=== PATIENT | female | born 1930 | race Caucasian/White ===

== ENCOUNTER → 2019-02-11 | Outpatient (CLI) | payer MEDICARE ==
[~2019-02-11] MED LIST: ASPI81TA27 PO; ATEN-60 PO; CHOL20007 PO; DIPH25CA6 PO; GLIP-115 PO; LATA0.0015 EACHEYE; LOVA20TA4 PO; METF-370 PO; TIMO0.5S38 EACHEYE
== END | disposition home or self-care (01) ==
LOC: Rad HDHVI 14:53
PROVIDERS: ATTEND Internal Medicine Cardiovascular Disease
DX: R06.02 Shortness of breath (principal); I11.9 Hypertensive heart disease without heart failure; R42 Dizziness and giddiness
CPT/HCPCS: 93306

== ENCOUNTER → 2019-03-03 | Outpatient (CLI) | payer MEDICARE ==
[~2019-03-03] VITALS: Ht 170.2 cm; Wt 74.8 kg
[~2019-03-03] MED LIST changes: +ADENOSINE 63 MG in GIVE UN-DILUTED 0 ML IV ONE; +ADENOSINE 90 MG/30 ML INJ IV ONE
== END | disposition home or self-care (01) ==
LOC: Rad HDHVI 13:07
PROVIDERS: ATTEND Internal Medicine Cardiovascular Disease
DX: I11.0 Hypertensive heart disease with heart failure (principal); I50.23 Acute on chronic systolic (congestive) heart failure; G45.9 Transient cerebral ischemic attack, unspecified; E78.00 Pure hypercholesterolemia, unspecified; R06.02 Shortness of breath; R42 Dizziness and giddiness
CPT/HCPCS: 78452; 93005; 96374; 96375; A9500; J0153

== ENCOUNTER 2019-04-17 10:22 | Inpatient (IN) | payer MEDICARE ==
[2019-04-17] VITALS (12 sets, daily range): BP systolic 97–161; BP diastolic 44–99
[~2019-04-17] VITALS: Ht 170.2 cm; Wt 76.0 kg
[~2019-04-17 10:22] MED LIST changes: -ADENOSINE 63 MG in GIVE UN-DILUTED 0 ML IV ONE; -ADENOSINE 90 MG/30 ML INJ IV ONE; +ASPI-404 PO; -ASPI81TA27 PO; +BRIM0.159 LEFTEYE; +DORZ2SOL LEFTEYE; -GLIP-115 PO; +GLIP5TAB12 PO; +IOHEXOL 350 MG/ML 100ML IJ ONE; +LIDOCAINE 2%HCL (LOCAL ANESTH.) INJ 20ML MDV ONE; -TIMO0.5S38 EACHEYE; +TIMO0.5S66 EACHEYE
[2019-04-17] MEDS ORDERED: ANGIOMAX 250 MG VIAL IV ONE (13:28)
[2019-04-17] MEDS ORDERED: SODIUM CHL 0.9% 0 ML ONE (13:29)
[2019-04-17] MEDS ORDERED: MIDAZOLAM HCL 1MG/1ML-2 ML VIAL ONE (13:29)
[2019-04-17] MEDS ORDERED: fentaNYL CITRATE 100 MCG/2 ML VL ONE (13:29)
[2019-04-17] MEDS ORDERED: IODIXANOL 320MG/ML 100ML BTL IV ONE (13:33)
[2019-04-17] MEDS ORDERED: HEPARIN IN NS 1000Units/500mL 0 ML ONE (14:06)
[2019-04-17] MEDS ORDERED: HEPARIN SODIUM (PORCINE) 5000 UNITS/ML 1ML VIAL ONE ×2 (14:21→22:11)
[2019-04-17] MEDS ORDERED: HEPARIN DRIP/D5W 100UNITS/ML 250 ML IV ONE (14:21)
[2019-04-17] MEDS ORDERED: DEXTROSE (50%) 50ML SYRG IV PRN (15:15)
[2019-04-17] MEDS ORDERED: NITROGLYCERIN 0.4 MG SL TAB SL PRN (15:15)
[2019-04-17] MEDS ORDERED: MORPHINE SULF INJ 2 MG/ML SYRINGE 1ML IV PRN (15:15)
[2019-04-17] MEDS ORDERED: ACETAMINOPHEN 500 MG TAB PO PRN (15:15)
[2019-04-17] MEDS ORDERED: HYDROcodone-ACET 5/325MG TAB PO PRN (15:15)
[2019-04-17] MEDS ORDERED: ONDANSETRON HCL 4 MG/2 ML VIAL IV PRN (15:15)
[2019-04-17] MEDS ORDERED: diphenhdrAMINE HCL 25 MG CAP PO PRN (15:15)
[2019-04-17 15:34] LABS: Albumin 3.7 g/dL (3.4-5.0); Calcium 9.4 mg/dL (8.5-10.1)
[2019-04-17] MEDS: HEPARIN DRIP/D5W 100UNITS/ML 250 ML IV SCH (15:36)
[2019-04-17 15:38] LABS: BUN/Creatinine Ratio 18.5; Bilirubin, Total 2.9 mg/dL (0.2-1.0)
[2019-04-17 15:40] LABS: Basophils # (auto) 0 uL; Basophils % (auto) 0.3 % (0.0-2.0); Eosinophils # (auto) 0.1 uL; Eosinophils % (auto) 2.1 % (0.0-7.0); Hematocrit 45.2 % (36.0-46.0); Hemoglobin 15.6 g/dL (12.2-16.2); Lymphocytes % (auto) 30.3 % (10.0-50.0); Mean Corpuscular Hemoglobin 32.8 pg (28.0-32.0); Mean Corpuscular Hgb Conc. 34.5 g/dL (32.0-36.0); Monocytes # (auto) 0.5 uL; Monocytes % (auto) 8.1 % (0.0-12.0); Neutrophils # (auto) 3.9 uL; Neutrophils % (auto) 59.2 % (37.0-80.0); Nucleated Red Blood Cells % 0.2 %; Platelet Count (auto) 211 10^3/uL (140-450); Red Blood Cells 4.76 10^6/uL (4.0-5.20); Red Cell Distribution Width 12.9 % (11.8-14.3); White Blood Cell 6.7 10^3/uL (4.4-10.8)
[2019-04-17 15:52] LABS: INR 1.13 (0.9-1.15)
--- NOTE | 2019-04-17 16:14 | NUR ---
Family contact information Mora (daughter) [phone] Parish Rodriguez (son-in-law/Mora's ) [phone]
[2019-04-17 16:46] LABS: Partial Thromboplastin Time 76.4 sec (23.64-32.05)
--- NOTE | 2019-04-17 16:57 | NUR ---
Primary MD At patient's request, pt's primary PCP Dr. Cayden Chopra notified that pt is in the hospital and pt would like to talk with her regarding decision to have surgery. Personally spoke with Dr. Chopra who stated she would review her chart and call back. Informed her of pt's location in ICU.
[2019-04-17] MEDS: ACCU-CHEK COMFORT CURVE STRIP VI SCH ×2 (17:00→22:18)
--- NOTE | 2019-04-17 17:30 | NUR ---
Pt being admitted to ICU EMILY MCCOY admitted to ICU via gurney on director education, and portable 02. Patient transfered to bed, connected to ICU monitoring and oxygen, and weighed by bedscale. Patient oriented to Kirk blunt RN, unit, room, bed, and unit policies regarding patient care and visiting hours. All questions and concerns addressed, patient verbalized understanding.
[2019-04-17] MEDS: glipiZIDE 5 MG TAB PO SCH (17:51)
[2019-04-17] MEDS: InsuLIN REG 1unit/0.01ml Soln (100units/ml) SC SCH ×2 (17:51→22:18)
--- NOTE | 2019-04-17 19:18 | NUR ---
REPORT GIVEN TO ORA MEHTA TO ASSUME CARE
--- NOTE | 2019-04-17 19:30 | NUR ---
OPENING SHIFT NOTE PT SITTING UP IN BED, ALERT AND ORIENTED TIMES FOUR. S/P ANGIOPLASTY. LUNG SOUNDS CLEAR. SINUS RHYTHM ON BEDSIDE MONITOR, HR 60'S. IV 2O GAUGE TO LEFT FOREARM RUNNING HEPARIN GTT AT 600 UNITS/HR. SITE BENIGN, PATENT AND INTACT. NO REDNESS OR COMPLAINTS OF TENDERNESS. RIGHT GROIN INSERTION SITE WITH ANGIOCELE. NO HEMATOMA OR HARDNESS NOTED. DRESSING CDI. ALL PULSES PALPABLE. FULL ASSESSMENT DONE SEE INTERVENTIONS. ALL ALARMS ON AND AUDIBLE. PT IN FULL VIEW OF RN. PT DENIES PAIN AT THIS TIME. CALL LIGHT NOMI DAIGLE AND PT VERBALIZED UNDERSTANDING TO CALL FOR ASSISTANCE.
--- NOTE | 2019-04-17 20:00 | NUR ---
DR. Cayden NARAYAN PHONES PT'S PRIMARY MD, Cayden NARAYAN, CALLS FOR UPDATE ON PT AND WISHES TO SPEAK WITH PT. PHONE CALL TRANSFERRED TO PORTABLE PHONE AND PT TALKS WITH .
[2019-04-17] MEDS: OPTH LEFTEYE SCH (22:00)
[2019-04-17] MEDS: SODIUM CHLOR 0.9% PF (SALINE LOCK) 10ML VIAL/SYR IV SCH (22:00)
[2019-04-17] MEDS: BRIMONIDINE 0.15% LEFTEYE SCH (22:00)
[2019-04-17] MEDS: TIMOLOL MAL 0.5% OPTH(EYE) SOL 5ML EACHEYE SCH (22:00)
[2019-04-17] MEDS: LATANOPROST 0.005 % OPTH(EYE) SOL 2.5ML OP SCH (22:00)
[2019-04-17] MEDS: DORZOLAMIDE HCL 2% OPTH(EYE) SOL 10ML LEFTEYE SCH (22:00)
[2019-04-17] MEDS: PRAVASTATIN SODIUM 20 MG TAB PO SCH (22:00)
--- NOTE | 2019-04-17 22:00 | NUR ---
PTT LAB RESULT CAME BACK 34.1. PER HEPARIN GTT PROTOCOL BY ; BOLUS PT 5,000 UNITS AND INCREASE HEPARIN GTT BY 300 UNITS. HEPARIN GTT NOW RUNNING AT 900 UNITS/HR. NEXT PTT LAB DRAW AT 0300. WILL CONTINUE TO MONITOR PT CLOSELY.
[2019-04-17] MEDS ORDERED: HEPARIN SODIUM (PORCINE) 5000 UNITS/ML 1ML VIAL IV ONE (22:15)
[2019-04-18] VITALS (44 sets, daily range): BP systolic 82–158; BP diastolic 36–84
[2019-04-18 03:56] LABS: Basophils # (auto) 0.1 uL; Basophils % (auto) 0.7 % (0.0-2.0); Eosinophils # (auto) 0.1 uL; Eosinophils % (auto) 1.6 % (0.0-7.0); Hematocrit 44.3 % (36.0-46.0); Hemoglobin 15.1 g/dL (12.2-16.2); Lymphocytes # (auto) 1.8 uL; Lymphocytes % (auto) 24.1 % (10.0-50.0); Mean Corpuscular Hemoglobin 32.4 pg (28.0-32.0); Mean Corpuscular Volume 95.3 fL (80.0-100.0); Monocytes # (auto) 0.7 uL; Monocytes % (auto) 9.2 % (0.0-12.0); Neutrophils # (auto) 4.9 uL; Neutrophils % (auto) 64.4 % (37.0-80.0); Nucleated Red Blood Cells % 0.1 %; Platelet Count (auto) 181 10^3/uL (140-450); Red Blood Cells 4.65 10^6/uL (4.0-5.20); Red Cell Distribution Width 13.3 % (11.8-14.3); White Blood Cell 7.6 10^3/uL (4.4-10.8)
[2019-04-18 04:16] LABS: Albumin 3.4 g/dL (3.4-5.0); BUN/Creatinine Ratio 21.9; Calcium 9.2 mg/dL (8.5-10.1); Magnesium 2.1 mg/dL (1.6-2.6); Potassium 3.7 mmol/L (3.5-5.1)
[2019-04-18 04:19] LABS: Bilirubin, Total 2.4 mg/dL (0.2-1.0); Phosphorus 3.8 mg/dL (2.5-4.90); Total Protein 6.3 g/dL (6.4-8.2)
--- NOTE | 2019-04-18 04:40 | NUR ---
PTT CRITICAL VALUE AT 97.0. PER PROTOCOL, HEPARIN GTT OFF AT THIS TIME FOR 1 HOUR. THEN WILL DECREASE BY 300UNITS. WILL CONTINUE TO MONITOR CLOSELY FOR ANY BLEEDING.
[2019-04-18] MEDS: SODIUM CHLOR 0.9% PF (SALINE LOCK) 10ML VIAL/SYR IV SCH ×3 (06:00→21:55)
[2019-04-18] MEDS: InsuLIN REG 1unit/0.01ml Soln (100units/ml) SC SCH ×4 (06:37→22:01)
[2019-04-18] MEDS: ACCU-CHEK COMFORT CURVE STRIP VI SCH ×4 (06:37→21:55)
--- NOTE | 2019-04-18 07:23 | NUR ---
END OF SHIFT NOTE REPORT GIVEN TO DAY SHIFT RN TO ASSUME CARE
[2019-04-18] MEDS: glipiZIDE 5 MG TAB PO SCH ×2 (08:00→18:00)
--- NOTE | 2019-04-18 08:00 | NUR ---
OPENING NOTE Received patient in bed resting with eyes closed, easily arousable to verbal stimuli, speech appropriate/clear and able to move upper/lower extremities. Sinus bradycardia in the high 50's on bedside monitor, pulses palpable on upper/lower extremities and no edema observed. Nasal cannula at 2 liters sating in the high 90's, lungs clear bilaterally. Abdomen soft, non tender and non distended with present bowel sounds. Patient uses bedpan to void. IV to the left forearm: good blood return and flushes easily infusing Heparin gtt at 6ml= 600 Units. Skin intact other than puncture site on right groin secondary to cardiac catheterization 04/17/2019: dressing clean, dry and intact. SCD's on. Patient denies any pain. Call light with in reach and bed at lowest position. Will continue to monitor patient closely for any bleeding.
--- NOTE | 2019-04-18 09:00 | NUR ---
ELIMINATION Patient requested bedpan, voided X 1, self angélica-care provided. Patient tolerated well.
[2019-04-18] MEDS: DORZOLAMIDE HCL 2% OPTH(EYE) SOL 10ML LEFTEYE SCH ×2 (09:30→21:56)
[2019-04-18] MEDS: TIMOLOL MAL 0.5% OPTH(EYE) SOL 5ML EACHEYE SCH ×2 (09:30→21:56)
[2019-04-18] MEDS: OPTH LEFTEYE SCH ×2 (09:30→21:56)
[2019-04-18] MEDS: BRIMONIDINE 0.15% LEFTEYE SCH ×2 (09:30→21:56)
[2019-04-18] MEDS: ATENOLOL 25 MG TAB PO SCH (09:31)
--- NOTE | 2019-04-18 09:45 | NUR ---
FAMILY Patients daughter and son in law at bedside.
--- NOTE | 2019-04-18 10:15 | NUR ---
MD Dr. Chopra at bedside updated on patient condition with no new orders. MD spoke to patient and patient daughters regarding plan of care. Questions and concerns answered by .
[2019-04-18] MEDS: CHOLECALCIFEROL (VITD3) 1,000 UNIT TAB PO SCH (10:19)
[2019-04-18 12:03] LABS: INR 1.06 (0.9-1.15); Partial Thromboplastin Time 34.2 sec (23.64-32.05)
--- NOTE | 2019-04-18 12:15 | NUR ---
HEPARIN GTT Received PTT results of 34.2 and increased Heparin gtt to 900 Units = 9ml/hr per Heparin gtt protocol.
--- NOTE | 2019-04-18 12:20 | NUR ---
FAMILY Patients grand daughters at bedside.
[2019-04-18] MEDS ORDERED: HEPARIN SODIUM (PORCINE) 5000 UNITS/ML 1ML VIAL IV ONE (12:30)
--- NOTE | 2019-04-18 13:50 | NUR ---
MD Dr. Cee at bedside updated on patient condition with no new orders. Spoke to patient regarding plan of care. Questions and concerns answered by .
--- NOTE | 2019-04-18 14:30 | NUR ---
ELIMINATION Patient requested bedpan, voided X 1, self angélica-care provided. Patient tolerated well.
--- NOTE | 2019-04-18 16:30 | NUR ---
Paged Dr. Chopra per charge nurse Dm to ask for a downgrade for this patient secondary to short staffing for nights.
--- NOTE | 2019-04-18 17:00 | NUR ---
MD Dr. Chopra called back with new orders, this RN to input into system.
--- NOTE | 2019-04-18 20:00 | NUR ---
PT AWAKE AND ALERT VERY PLEASANT, DENIES ANY CHEST PAIN SOB OR HEADACHE, PT STATES "i NEVER HAD CHEST PAIN", ON 2L NC SAO2 96%, SR WITHOUT ECTOPY, LFA #20G IV INFUSING HEPARIN GTT AT 900U/HR, PTT PENDING AT THIS TIME, SEE INTERVENTIONS FOR FURTHER ASSESSMENT AND V/S, REPORT GIVEN TO LAURY ON MED-SURG TELE, TRANSPORTED PT TO 219B VIA W/C, TOLERATED MOVEMENT WELL
--- NOTE | 2019-04-18 20:10 | NUR ---
RECEIVED PATIENT VIA WHEELCHAIR ALERT AND ORIENTED X 4, DENIES ANY CHEST PAIN, ON HEPARIN DRIP AT 900UNITS/HR, IV ON LFA INTACT, ORIENTED TO UNIT ROUTINES, EMPHASIZED SAFETY, CALL MOBLEY AT BEDSIDE WITHIN REACH.
--- NOTE | 2019-04-18 20:30 | NUR ---
LATEST PTT IS STILL PENDING. WAITING FOR RESULT.
--- NOTE | 2019-04-18 20:40 | NUR ---
LATEST APTT IS >139 SEC, HELD HEPARIN DRIP AT 2040 FOR 1HOUR PER PROTOCOL, NO SIGNS OF BLEEDING.
--- NOTE | 2019-04-18 21:40 | NUR ---
RESTARTED HEPARIN DRIP AT 2140 INFUSING AT 600UNITS/HR PER PROTOCOL.
[2019-04-18] MEDS: PRAVASTATIN SODIUM 20 MG TAB PO SCH (21:55)
[2019-04-18] MEDS: LATANOPROST 0.005 % OPTH(EYE) SOL 2.5ML OP SCH (21:56)
[2019-04-19] MEDS: HEPARIN DRIP/D5W 100UNITS/ML 250 ML IV SCH (02:19)
[2019-04-19 05:02] LABS: INR 1.02 (0.9-1.15); Partial Thromboplastin Time 36.7 sec (23.64-32.05)
--- NOTE | 2019-04-19 05:15 | NUR ---
HEPARIN DRIP LATEST APTT-36.7, INCREASED DRIP RATE TO 800UNITS/HR (8ML/HR) PER PROTOCOL. NEXT APTT BLOOD DRAW SCHEDULED AT 1200.
[2019-04-19 06:09] VITALS: BP 97/72
[2019-04-19] MEDS: SODIUM CHLOR 0.9% PF (SALINE LOCK) 10ML VIAL/SYR IV SCH ×2 (06:28→14:20)
[2019-04-19] MEDS: ACCU-CHEK COMFORT CURVE STRIP VI SCH ×2 (06:28→11:30)
[2019-04-19] MEDS: InsuLIN REG 1unit/0.01ml Soln (100units/ml) SC SCH ×2 (06:31→11:30)
--- NOTE | 2019-04-19 07:50 | NUR ---
Opening Shift Note Assumed care of patient, awake , alert and oriented x4. No S/S of distress/SOB or pain. Bed at lowest locked, position bed rails up x2 and call light within reach. Instructed on POC and to call for assist PRN, will continue to monitor for changes Q1hr and PRN.
[2019-04-19] MEDS: glipiZIDE 5 MG TAB PO SCH (08:00)
[2019-04-19 08:30] VITALS: BP 115/57
[2019-04-19 08:39] VITALS: BP 115/57
[2019-04-19] MEDS: BRIMONIDINE 0.15% LEFTEYE SCH (10:00)
[2019-04-19] MEDS: CHOLECALCIFEROL (VITD3) 1,000 UNIT TAB PO SCH (10:00)
[2019-04-19] MEDS: DORZOLAMIDE HCL 2% OPTH(EYE) SOL 10ML LEFTEYE SCH (10:00)
[2019-04-19] MEDS: ATENOLOL 25 MG TAB PO SCH (10:00)
[2019-04-19] MEDS: OPTH LEFTEYE SCH (10:00)
[2019-04-19] MEDS: TIMOLOL MAL 0.5% OPTH(EYE) SOL 5ML EACHEYE SCH (10:00)
[2019-04-19 11:25] LABS: INR 1.01 (0.9-1.15); Partial Thromboplastin Time 42.3 sec (23.64-32.05)
[2019-04-19 12:21] VITALS: BP 111/65
[2019-04-19 12:58] VITALS: BP 112/62
--- NOTE | 2019-04-19 13:43 | NUR ---
MRSA SWAB Collected MRSA swab, of r/l nare.Sent to lab via [facility] system. Patient tolerated well.
--- NOTE | 2019-04-19 13:44 | NUR ---
Discharge instructions given as ordered. Encourage to follow up with PMD as instructed. All questions and concerns addressed. Patient verbalized understanding. Medication reconciliation form completed and copy given to patient. IV removed with catheter intact, pressure dressing applied. Telemetry unit returned to ICU. Patient awaiting for transportation. All personal belongings are with patient. No distress noted. No c/o pain stated.
== END 2019-04-19 13:20 | disposition home or self-care (01) | DRG 287 ==
LOC: CATH 10:22 → ICU WEST 10:23 → TELE-CENTR 04-18 19:58
PROVIDERS: ADMIT Internal Medicine Cardiovascular Disease; ATTEND Internal Medicine Cardiovascular Disease
PROC: 4A023N8 Measurement of Cardiac Sampling and Pressure, Bilateral, Percutaneous Approach (ICD-10-PCS; principal; 2019-04-17)
PROC: B2161ZZ Fluoroscopy of Right and Left Heart using Low Osmolar Contrast (ICD-10-PCS; 2019-04-17)
PROC: B3111ZZ Fluoroscopy of Right Brachiocephalic-Subclavian Artery using Low Osmolar Contrast (ICD-10-PCS; 2019-04-17)
PROC: B31N1ZZ Fluoroscopy of Other Upper Arteries using Low Osmolar Contrast (ICD-10-PCS; 2019-04-17)
PROC: B3181ZZ Fluoroscopy of Bilateral Internal Carotid Arteries using Low Osmolar Contrast (ICD-10-PCS; 2019-04-17)
PROC: B31C1ZZ Fluoroscopy of Bilateral External Carotid Arteries using Low Osmolar Contrast (ICD-10-PCS; 2019-04-17)
PROC: B3151ZZ Fluoroscopy of Bilateral Common Carotid Arteries using Low Osmolar Contrast (ICD-10-PCS; 2019-04-17)
PROC: B2151ZZ Fluoroscopy of Left Heart using Low Osmolar Contrast (ICD-10-PCS; 2019-04-17)
PROC: B41F1ZZ Fluoroscopy of Right Lower Extremity Arteries using Low Osmolar Contrast (ICD-10-PCS; 2019-04-17)
DX: I25.10 Atherosclerotic heart disease of native coronary artery without angina pectoris (principal); I25.5 Ischemic cardiomyopathy; E78.5 Hyperlipidemia, unspecified; I10 Essential (primary) hypertension; E11.9 Type 2 diabetes mellitus without complications; H40.9 Unspecified glaucoma; M19.90 Unspecified osteoarthritis, unspecified site; Z79.899 Other long term (current) drug therapy
CPT/HCPCS: 36415; 36600; 71046; 80048; 80053; 82805; 82962; 83735; 84100; 85025; 85610; 85730; 87081; 93005; G0378; G0463; J1815; J2250; Q9967

== ENCOUNTER 2021-03-11 20:04 | Inpatient (IN) | payer MEDICARE ==
[~2021-03-11] VITALS: Ht 170.2 cm; Wt 79.7 kg
[~2021-03-11 20:04] MED LIST changes: -ASPI-404 PO; +ASPI-543 PO; +DIPH25CA29 PO; -DIPH25CA6 PO; -DORZ2SOL LEFTEYE; +DORZ2SOL18 EACHEYE; -IOHEXOL 350 MG/ML 100ML IJ ONE; -LATA0.0015 EACHEYE; +LATA0.0019 EACHEYE; -LIDOCAINE 2%HCL (LOCAL ANESTH.) INJ 20ML MDV ONE
[2021-03-11 21:27] LABS: Basophils # (auto) 0.1 10 ^3/uL (0-0.2); Basophils % (auto) 0.9 % (0.0-2.0); Eosinophils # (auto) 0.2 10 ^3/uL (0-0.8); Eosinophils % (auto) 2.8 % (0.0-7.0); Hematocrit 39.1 % (36.0-46.0); Hemoglobin 13.5 g/dL (12.2-16.2); Lymphocytes # (auto) 0.9 10 ^3/uL (0.4-5.4); Lymphocytes % (auto) 14.2 % (10.0-50.0); Mean Corpuscular Hgb Conc. 34.6 g/dL (32.0-36.0); Mean Corpuscular Volume 92.5 fL (80.0-100.0); Monocytes # (auto) 0.5 10 ^3/uL (0-1.3); Monocytes % (auto) 7.2 % (0.0-12.0); Neutrophils % (auto) 74.9 % (37.0-80.0); Red Blood Cells 4.23 10^6/uL (4.0-5.20); Red Cell Distribution Width 14.7 % (11.8-14.3); White Blood Cell 6.6 10^3/uL (4.4-10.8)
[2021-03-11 21:47] LABS: INR 1.1 (0.9-1.15); Partial Thromboplastin Time 25.7 sec (23.0-31.2)
[2021-03-11 21:55] LABS: Albumin 3.4 g/dL (3.4-5.0); Calcium 8.9 mg/dL (8.5-10.1)
[2021-03-11 21:57] LABS: BUN/Creatinine Ratio 25.2
[2021-03-11 22:02] LABS: Bilirubin, Total 2.1 mg/dL (0.2-1.0); Total Protein 7.2 g/dL (6.4-8.2)
[2021-03-12] MEDS ORDERED: FUROSEMIDE 40 MG/4 ML VIAL IV ONE (01:15)
[2021-03-12] MEDS ORDERED: MORPHINE SULFATE INJECTION 2 MG/ML SYRG IV PRN (02:45)
[2021-03-12] MEDS ORDERED: ONDANSETRON HCL 4 MG/2 ML VIAL IV PRN (02:45)
[2021-03-12] MEDS ORDERED: DOCUSATE SOD 100 MG CAP PO PRN (02:45)
[2021-03-12] MEDS ORDERED: HYDROcodone-ACET 5/325MG TAB PO PRN (02:45)
[2021-03-12] MEDS ORDERED: NITROGLYCERIN 0.4 MG SL TAB SL PRN (02:45)
[2021-03-12] MEDS ORDERED: DEXTROSE (50%) 50ML SYRG IV PRN (02:45)
[2021-03-12] MEDS ORDERED: ACETAMINOPHEN 325 MG TAB PO PRN (02:45)
[2021-03-12] MEDS: POTASSIUM CHL 20MEQ/100ML 100 ML IV SCH ×2 (04:05→08:13)
[2021-03-12 05:55] VITALS: BP 114/66
[2021-03-12] MEDS: ACCU-CHEK COMFORT CURVE STRIP VI SCH ×4 (06:28→20:47)
[2021-03-12] MEDS: SODIUM CHLOR 0.9% PF (SALINE LOCK) 10ML VIAL/SYR IV SCH ×3 (06:28→22:25)
[2021-03-12] MEDS: InsuLIN REG 1unit/0.01ml Soln (100units/ml) SC SCH ×4 (06:29→22:21)
[2021-03-12 07:33] LABS: Basophils # (auto) 0 10 ^3/uL (0-0.2); Basophils % (auto) 0.8 % (0.0-2.0); Eosinophils # (auto) 0.2 10 ^3/uL (0-0.8); Eosinophils % (auto) 3.5 % (0.0-7.0); Hematocrit 39.4 % (36.0-46.0); Hemoglobin 13.5 g/dL (12.2-16.2); Lymphocytes % (auto) 16.7 % (10.0-50.0); Mean Corpuscular Hemoglobin 31.9 pg (28.0-32.0); Mean Corpuscular Hgb Conc. 34.2 g/dL (32.0-36.0); Mean Corpuscular Volume 93.1 fL (80.0-100.0); Monocytes # (auto) 0.5 10 ^3/uL (0-1.3); Monocytes % (auto) 9.1 % (0.0-12.0); Neutrophils # (auto) 4.2 10 ^3/uL (1.6-8.6); Neutrophils % (auto) 69.9 % (37.0-80.0); Nucleated Red Blood Cells % 0.1 %; Red Blood Cells 4.23 10^6/uL (4.0-5.20); Red Cell Distribution Width 14.5 % (11.8-14.3); White Blood Cell 5.9 10^3/uL (4.4-10.8)
[2021-03-12 07:49] LABS: Albumin 3.6 g/dL (3.4-5.0); Potassium 3.9 mmol/L (3.5-5.1)
[2021-03-12 07:53] LABS: BUN/Creatinine Ratio 24.4; Bilirubin, Total 2.4 mg/dL (0.2-1.0)
[2021-03-12 08:00] VITALS: BP 117/73
[2021-03-12 08:31] VITALS: BP 117/73
[2021-03-12] MEDS: FUROSEMIDE 40 MG/4 ML VIAL IV SCH (10:54)
[2021-03-12] MEDS: ASPirin 81 mg TAB PO SCH (10:54)
[2021-03-12] MEDS: ZINC SULFATE 220mg CAP or TAB PO SCH (10:54)
[2021-03-12] MEDS: FAMOTIDINE 20 MG TAB PO SCH (10:54)
[2021-03-12] MEDS: HEPARIN SODIUM (PORCINE) 5000 UNITS/ML 1ML VIAL SC SCH ×2 (10:55→20:45)
[2021-03-12] MEDS: ASCORBIC ACID 500 MG TAB PO SCH ×2 (10:55→20:43)
[2021-03-12 12:12] VITALS: BP 127/71
[2021-03-12 17:00] VITALS: BP 124/67
[2021-03-12] MEDS: ALPRAZolam 0.25 MG TAB PO PRN (18:41)
[2021-03-12] MEDS: ATORVASTATIN 20 MG TAB PO SCH (20:42)
[2021-03-12] MEDS: ATENOLOL 25 MG TAB PO SCH (20:43)
[2021-03-12 22:00] VITALS: BP 100/62
[2021-03-13 05:00] VITALS: BP 94/64
[2021-03-13 06:10] LABS: Basophils # (auto) 0.1 10 ^3/uL (0-0.2); Basophils % (auto) 1.1 % (0.0-2.0); Eosinophils # (auto) 0.3 10 ^3/uL (0-0.8); Hematocrit 39.8 % (36.0-46.0); Hemoglobin 13.9 g/dL (12.2-16.2); Lymphocytes # (auto) 1.2 10 ^3/uL (0.4-5.4); Lymphocytes % (auto) 23.6 % (10.0-50.0); Mean Corpuscular Hemoglobin 32.7 pg (28.0-32.0); Mean Corpuscular Volume 93.3 fL (80.0-100.0); Monocytes # (auto) 0.6 10 ^3/uL (0-1.3); Neutrophils % (auto) 59.3 % (37.0-80.0); Nucleated Red Blood Cells % 0.2 %; Red Blood Cells 4.27 10^6/uL (4.0-5.20); Red Cell Distribution Width 14.6 % (11.8-14.3); White Blood Cell 5.1 10^3/uL (4.4-10.8)
[2021-03-13] MEDS: SODIUM CHLOR 0.9% PF (SALINE LOCK) 10ML VIAL/SYR IV SCH ×3 (06:20→22:07)
[2021-03-13] MEDS: ACCU-CHEK COMFORT CURVE STRIP VI SCH ×4 (06:21→22:13)
[2021-03-13] MEDS: InsuLIN REG 1unit/0.01ml Soln (100units/ml) SC SCH ×4 (06:21→22:35)
[2021-03-13 06:36] LABS: Calcium 9.1 mg/dL (8.5-10.1); Potassium 3.6 mmol/L (3.5-5.1)
[2021-03-13 06:41] LABS: Albumin 3.5 g/dL (3.4-5.0); BUN/Creatinine Ratio 24.3; Bilirubin, Total 1.6 mg/dL (0.2-1.0); Total Protein 6.8 g/dL (6.4-8.2)
[2021-03-13 08:00] VITALS: BP 107/63
[2021-03-13] MEDS: LISINOPRIL 20 MG TAB PO SCH (10:00)
[2021-03-13] MEDS: FUROSEMIDE 40 MG/4 ML VIAL IV SCH (10:00)
[2021-03-13] MEDS: ATENOLOL 25 MG TAB PO SCH ×2 (10:00→22:00)
[2021-03-13] MEDS: FAMOTIDINE 20 MG TAB PO SCH (10:47)
[2021-03-13] MEDS: ZINC SULFATE 220mg CAP or TAB PO SCH (10:47)
[2021-03-13] MEDS: HEPARIN SODIUM (PORCINE) 5000 UNITS/ML 1ML VIAL SC SCH ×2 (10:48→22:15)
[2021-03-13] MEDS: ASCORBIC ACID 500 MG TAB PO SCH ×2 (10:48→22:12)
[2021-03-13] MEDS: ASPirin 81 mg TAB PO SCH (11:24)
[2021-03-13 12:00] VITALS: BP 103/62
[2021-03-13 16:00] VITALS: BP 101/55
[2021-03-13] MEDS: ALPRAZolam 0.25 MG TAB PO PRN (19:44)
[2021-03-13 22:00] VITALS: BP 106/67
[2021-03-13] MEDS: ATORVASTATIN 20 MG TAB PO SCH (22:12)
[2021-03-14 05:00] VITALS: BP 108/68
[2021-03-14] MEDS: ACCU-CHEK COMFORT CURVE STRIP VI SCH ×4 (05:52→21:29)
[2021-03-14] MEDS: SODIUM CHLOR 0.9% PF (SALINE LOCK) 10ML VIAL/SYR IV SCH ×3 (05:53→21:28)
[2021-03-14] MEDS: InsuLIN REG 1unit/0.01ml Soln (100units/ml) SC SCH ×4 (05:53→21:34)
[2021-03-14 08:54] VITALS: BP 126/63
[2021-03-14] MEDS: FUROSEMIDE 40 MG/4 ML VIAL IV SCH (09:50)
[2021-03-14] MEDS: ASPirin 81 mg TAB PO SCH (09:50)
[2021-03-14] MEDS: ZINC SULFATE 220mg CAP or TAB PO SCH (09:51)
[2021-03-14] MEDS: LISINOPRIL 20 MG TAB PO SCH (09:51)
[2021-03-14] MEDS: FAMOTIDINE 20 MG TAB PO SCH (09:51)
[2021-03-14] MEDS: ASCORBIC ACID 500 MG TAB PO SCH ×2 (09:51→21:28)
[2021-03-14] MEDS: ATENOLOL 25 MG TAB PO SCH ×2 (09:57→21:41)
[2021-03-14] MEDS: HEPARIN SODIUM (PORCINE) 5000 UNITS/ML 1ML VIAL SC SCH ×2 (11:19→21:33)
[2021-03-14] MEDS: ALPRAZolam 0.25 MG TAB PO PRN ×2 (12:15→21:29)
[2021-03-14 13:00] VITALS: BP 86/49
[2021-03-14 17:00] VITALS: BP 81/47
[2021-03-14] MEDS: ATORVASTATIN 20 MG TAB PO SCH (21:28)
[2021-03-14 22:00] VITALS: BP 94/53
[2021-03-15] MEDS: SODIUM CHLOR 0.9% PF (SALINE LOCK) 10ML VIAL/SYR IV SCH ×3 (05:31→21:21)
[2021-03-15] MEDS: ACCU-CHEK COMFORT CURVE STRIP VI SCH ×4 (06:41→21:35)
[2021-03-15] MEDS: InsuLIN REG 1unit/0.01ml Soln (100units/ml) SC SCH ×4 (06:59→21:44)
[2021-03-15 09:00] VITALS: BP 94/52
[2021-03-15] MEDS: ASPirin 81 mg TAB PO SCH (09:26)
[2021-03-15] MEDS: ASCORBIC ACID 500 MG TAB PO SCH ×2 (09:26→21:21)
[2021-03-15] MEDS: ZINC SULFATE 220mg CAP or TAB PO SCH (09:26)
[2021-03-15] MEDS: FAMOTIDINE 20 MG TAB PO SCH (09:27)
[2021-03-15] MEDS: HEPARIN SODIUM (PORCINE) 5000 UNITS/ML 1ML VIAL SC SCH ×2 (09:30→21:23)
[2021-03-15] MEDS: LISINOPRIL 20 MG TAB PO SCH (10:00)
[2021-03-15] MEDS: FUROSEMIDE 40 MG/4 ML VIAL IV SCH (10:00)
[2021-03-15] MEDS: ATENOLOL 25 MG TAB PO SCH ×2 (10:00→21:35)
[2021-03-15 13:00] VITALS: BP 95/52
[2021-03-15] MEDS: ALPRAZolam 0.25 MG TAB PO PRN ×2 (13:20→21:22)
[2021-03-15 17:00] VITALS: BP 93/53
[2021-03-15] MEDS: ATORVASTATIN 20 MG TAB PO SCH (21:21)
[2021-03-15 22:00] VITALS: BP 86/58
[2021-03-16 05:00] VITALS: BP 114/65
[2021-03-16] MEDS: SODIUM CHLOR 0.9% PF (SALINE LOCK) 10ML VIAL/SYR IV SCH ×3 (05:54→20:58)
[2021-03-16] MEDS: ACCU-CHEK COMFORT CURVE STRIP VI SCH ×4 (06:25→20:59)
[2021-03-16] MEDS: InsuLIN REG 1unit/0.01ml Soln (100units/ml) SC SCH ×4 (06:26→21:21)
[2021-03-16 08:07] LABS: BUN/Creatinine Ratio 36.6; Calcium 9.3 mg/dL (8.5-10.1); Potassium 4.5 mmol/L (3.5-5.1)
[2021-03-16 09:00] VITALS: BP 91/62
[2021-03-16 09:05] LABS: INR 1.08 (0.9-1.15)
[2021-03-16] MEDS: FUROSEMIDE 40 MG/4 ML VIAL IV SCH (10:00)
[2021-03-16] MEDS: ATENOLOL 25 MG TAB PO SCH ×2 (10:00→22:00)
[2021-03-16] MEDS: LISINOPRIL 20 MG TAB PO SCH (10:00)
[2021-03-16] MEDS: ZINC SULFATE 220mg CAP or TAB PO SCH (10:43)
[2021-03-16] MEDS: ASCORBIC ACID 500 MG TAB PO SCH ×2 (10:43→20:58)
[2021-03-16] MEDS: FAMOTIDINE 20 MG TAB PO SCH (10:43)
[2021-03-16] MEDS: ALPRAZolam 0.25 MG TAB PO PRN ×2 (10:43→20:59)
[2021-03-16] MEDS: ASPirin 81 mg TAB PO SCH (10:43)
[2021-03-16] MEDS: HEPARIN SODIUM (PORCINE) 5000 UNITS/ML 1ML VIAL SC SCH ×2 (10:47→20:59)
[2021-03-16 11:27] LABS: Basophils # (auto) 0 10 ^3/uL (0-0.2); Basophils % (auto) 0.7 % (0.0-2.0); Eosinophils # (auto) 0.4 10 ^3/uL (0-0.8); Eosinophils % (auto) 6.7 % (0.0-7.0); Hematocrit 41.1 % (36.0-46.0); Hemoglobin 13.9 g/dL (12.2-16.2); Lymphocytes # (auto) 0.8 10 ^3/uL (0.4-5.4); Lymphocytes % (auto) 15.1 % (10.0-50.0); Mean Corpuscular Hemoglobin 31.8 pg (28.0-32.0); Mean Corpuscular Hgb Conc. 33.8 g/dL (32.0-36.0); Mean Corpuscular Volume 94.3 fL (80.0-100.0); Monocytes # (auto) 0.6 10 ^3/uL (0-1.3); Monocytes % (auto) 10.4 % (0.0-12.0); Neutrophils # (auto) 3.7 10 ^3/uL (1.6-8.6); Neutrophils % (auto) 67.1 % (37.0-80.0); Nucleated Red Blood Cells % 0.2 %; Red Blood Cells 4.36 10^6/uL (4.0-5.20); White Blood Cell 5.6 10^3/uL (4.4-10.8)
[2021-03-16 13:00] VITALS: BP 91/47
[2021-03-16 17:00] VITALS: BP 108/64
[2021-03-16] MEDS: ATORVASTATIN 20 MG TAB PO SCH (20:58)
[2021-03-16 22:00] VITALS: BP 121/74
[2021-03-17 05:00] VITALS: BP 103/60
[2021-03-17] MEDS: SODIUM CHLOR 0.9% PF (SALINE LOCK) 10ML VIAL/SYR IV SCH ×2 (05:59→13:55)
[2021-03-17] MEDS: ACCU-CHEK COMFORT CURVE STRIP VI SCH ×2 (06:11→13:52)
[2021-03-17] MEDS: InsuLIN REG 1unit/0.01ml Soln (100units/ml) SC SCH ×2 (06:16→13:54)
[2021-03-17 08:00] VITALS: BP 106/55
[2021-03-17] MEDS: ZINC SULFATE 220mg CAP or TAB PO SCH (09:50)
[2021-03-17] MEDS: ASCORBIC ACID 500 MG TAB PO SCH (09:50)
[2021-03-17] MEDS: ASPirin 81 mg TAB PO SCH (09:52)
[2021-03-17] MEDS: ALPRAZolam 0.25 MG TAB PO PRN (09:52)
[2021-03-17] MEDS: FAMOTIDINE 20 MG TAB PO SCH (09:53)
[2021-03-17] MEDS: HEPARIN SODIUM (PORCINE) 5000 UNITS/ML 1ML VIAL SC SCH (09:59)
[2021-03-17] MEDS: ATENOLOL 25 MG TAB PO SCH (10:00)
[2021-03-17] MEDS: FUROSEMIDE 40 MG/4 ML VIAL IV SCH (10:00)
[2021-03-17] MEDS: LISINOPRIL 20 MG TAB PO SCH (10:00)
[2021-03-17 12:00] VITALS: BP 111/66
[2021-03-17 15:38] VITALS: BP 106/55
[2021-03-17 16:00] VITALS: BP 112/66
== END 2021-03-17 16:50 | disposition home or self-care (01) | DRG 280 ==
LOC: EDBD 20:04 → ER 20:06 → TELE 03-12 04:26 → TELE-CENTR 03-12 05:28
PROVIDERS: ADMIT Nurse Practitioner Family; ATTEND Internal Medicine Cardiovascular Disease
DX: I21.4 Non-ST elevation (NSTEMI) myocardial infarction (principal); I50.23 Acute on chronic systolic (congestive) heart failure; E11.65 Type 2 diabetes mellitus with hyperglycemia; I25.5 Ischemic cardiomyopathy; I25.10 Atherosclerotic heart disease of native coronary artery without angina pectoris; E11.21 Type 2 diabetes mellitus with diabetic nephropathy; I11.0 Hypertensive heart disease with heart failure; E11.40 Type 2 diabetes mellitus with diabetic neuropathy, unspecified; E78.5 Hyperlipidemia, unspecified; E78.00 Pure hypercholesterolemia, unspecified; I48.91 Unspecified atrial fibrillation; Z20.822 Contact with and (suspected) exposure to COVID-19; J44.9 Chronic obstructive pulmonary disease, unspecified; I25.2 Old myocardial infarction; Z82.49 Family history of ischemic heart disease and other diseases of the circulatory system; Z86.73 Personal history of transient ischemic attack (TIA), and cerebral infarction without residual deficits; Z83.3 Family history of diabetes mellitus; N28.9 Disorder of kidney and ureter, unspecified
CPT/HCPCS: 36415; 71045; 80048; 80053; 82962; 83036; 83735; 83880; 84443; 84484; 85025; 85049; 85610; 85730; 87426; 93005; 93306; 96374; G0378; J1815; J3480

== ENCOUNTER → 2021-06-21 | Outpatient (CLI) | payer MEDICARE ==
[~2021-06-21] MED LIST changes: -DIPH25CA29 PO; +DIPH25CA6 PO
[2021-06-21 10:02] LABS: Urine Blood Negative /uL (Negative)
[2021-06-21 10:27] LABS: Potassium 4.6 mmol/L (3.5-5.1)
[2021-06-21 10:30] LABS: Basophils # (auto) 0 10 ^3/uL (0-0.2); Basophils % (auto) 0.9 % (0.0-2.0); Eosinophils # (auto) 0.2 10 ^3/uL (0-0.8); Eosinophils % (auto) 3.7 % (0.0-7.0); Hematocrit 41.5 % (36.0-46.0); Hemoglobin 14.4 g/dL (12.2-16.2); Lymphocytes # (auto) 0.9 10 ^3/uL (0.4-5.4); Lymphocytes % (auto) 19.9 % (10.0-50.0); Mean Corpuscular Hemoglobin 33.8 pg (28.0-32.0); Mean Corpuscular Hgb Conc. 34.7 g/dL (32.0-36.0); Mean Corpuscular Volume 97.6 fL (80.0-100.0); Monocytes # (auto) 0.4 10 ^3/uL (0-1.3); Monocytes % (auto) 8.6 % (0.0-12.0); Neutrophils # (auto) 3.1 10 ^3/uL (1.6-8.6); Neutrophils % (auto) 66.9 % (37.0-80.0); Nucleated Red Blood Cells % 0.1 %; Red Blood Cells 4.25 10^6/uL (4.0-5.20); Red Cell Distribution Width 15.4 % (11.8-14.3); White Blood Cell 4.7 10^3/uL (4.4-10.8)
[2021-06-21 10:36] LABS: Albumin 3.6 g/dL (3.4-5.0); BUN/Creatinine Ratio 17.6; Bilirubin, Total 1.9 mg/dL (0.2-1.0); Calcium 9.3 mg/dL (8.5-10.1); Total Protein 7.2 g/dL (6.4-8.2)
[2021-06-21 10:41] LABS: Free T4 (Free Thyroxine) 0.88 ng/dL (0.89-1.76)
== END | disposition home or self-care (01) ==
LOC: LAB 08:48
PROVIDERS: ATTEND Internal Medicine Cardiovascular Disease
DX: D51.3 Other dietary vitamin B12 deficiency anemia (principal); I10 Essential (primary) hypertension; E11.9 Type 2 diabetes mellitus without complications; E55.9 Vitamin D deficiency, unspecified; D64.9 Anemia, unspecified; R00.2 Palpitations; R53.1 Weakness; R30.0 Dysuria
CPT/HCPCS: 36415; 80053; 80061; 81003; 82306; 82607; 83036; 84439; 84443; 85025

== ENCOUNTER 2021-08-24 16:47 | Inpatient (IN) | payer MEDICARE ==
[~2021-08-24] VITALS: Ht 165.1 cm; Wt 78.1 kg
[~2021-08-24 16:47] MED LIST changes: +DIPH25CA29 PO; -DIPH25CA6 PO
[2021-08-24] MEDS ORDERED: MORPHINE SULFATE 4 MG/ML SYR/VIAL IV ONE (17:15)
[2021-08-24] MEDS ORDERED: ONDANSETRON HCL 4 MG/2 ML VIAL ONE (17:48)
[2021-08-24] MEDS ORDERED: ONDANSETRON HCL 4 MG/2 ML VIAL IV ONE (18:00)
[2021-08-24 18:06] LABS: Basophils # (auto) 0 10 ^3/uL (0-0.2); Basophils % (auto) 0.3 % (0.0-2.0); Eosinophils # (auto) 0.1 10 ^3/uL (0-0.8); Eosinophils % (auto) 0.9 % (0.0-7.0); Hematocrit 45.6 % (36.0-46.0); Hemoglobin 15.4 g/dL (12.2-16.2); Lymphocytes # (auto) 0.9 10 ^3/uL (0.4-5.4); Lymphocytes % (auto) 11.3 % (10.0-50.0); Mean Corpuscular Hemoglobin 33.3 pg (28.0-32.0); Mean Corpuscular Hgb Conc. 33.7 g/dL (32.0-36.0); Mean Corpuscular Volume 98.8 fL (80.0-100.0); Monocytes # (auto) 0.5 10 ^3/uL (0-1.3); Monocytes % (auto) 6.1 % (0.0-12.0); Neutrophils # (auto) 6.5 10 ^3/uL (1.6-8.6); Neutrophils % (auto) 81.4 % (37.0-80.0); Nucleated Red Blood Cells % 0.1 %; Red Blood Cells 4.62 10^6/uL (4.0-5.20)
[2021-08-24] MEDS ORDERED: MORPHINE SULFATE INJECTION 2 MG/ML SYRG ONE (18:09)
[2021-08-24] MEDS ORDERED: MORPHINE SULFATE INJECTION 2 MG/ML SYRG IV ONE (18:15)
[2021-08-24 18:21] LABS: Albumin 3.2 g/dL (3.4-5.0); Calcium 8.5 mg/dL (8.5-10.1); Magnesium 2.5 mg/dL (1.6-2.6)
[2021-08-24 18:26] LABS: Bilirubin, Total 1.7 mg/dL (0.2-1.0); Total Protein 6.7 g/dL (6.4-8.2)
[2021-08-24] MEDS ORDERED: HEPARIN 1,000 UNITS/ml 1ML VIAL IV ONE (18:45)
[2021-08-24] MEDS ORDERED: ENOXAPARIN SOD 100 MG/1 ML SYRINGE SC ONE (18:45)
[2021-08-24] MEDS ORDERED: CLOPIDOGREL BISULFATE 75 MG TAB PO ONE (18:45)
[2021-08-24] MEDS ORDERED: ANGIOMAX 250 MG VIAL IV ONE ×2 (19:06→21:10)
[2021-08-24] MEDS ORDERED: fentaNYL CITRATE 100 MCG/2 ML VL ONE (19:06)
[2021-08-24] MEDS ORDERED: HEPARIN SODIUM (PORCINE) 5000 UNITS/ML 1ML VIAL ONE (19:06)
[2021-08-24] MEDS ORDERED: VERAPAMIL 2.5MG/ML INJ 2ML VIAL IV ONE (19:06)
[2021-08-24] MEDS ORDERED: LIDOCAINE 2%HCL (LOCAL ANESTH.) INJ 20ML MDV ONE (19:07)
[2021-08-24] MEDS ORDERED: MIDAZOLAM HCL 2MG/2ML 2ml VIAL (1mg/ml) ONE ×2 (19:07→20:45)
[2021-08-24] MEDS ORDERED: SODIUM CHL 0.9% 50 ML ONE ×2 (19:07→21:10)
[2021-08-24] MEDS ORDERED: IODIXANOL 320MG/ML 100ML BTL IV ONE ×2 (19:07→21:30)
[2021-08-24] MEDS ORDERED: IOHEXOL 350 MG/ML 100ML IJ ONE ×2 (19:16→20:21)
[2021-08-24] MEDS ORDERED: ATROPINE SULF 1 MG/10ml SYR ONE (20:55)
[2021-08-24] MEDS ORDERED: EPINEPHrine HCL 1 MG/10 ML SYRG ONE (20:56)
[2021-08-24] MEDS ORDERED: hydrALAZINE HCL 20 MG/ML VL IV PRN (21:15)
[2021-08-24] MEDS ORDERED: DOCUSATE SOD 100 MG CAP PO PRN (21:15)
[2021-08-24] MEDS ORDERED: ACETAMINOPHEN 325 MG TAB PO PRN (21:15)
[2021-08-24] MEDS ORDERED: DEXTROSE (50%) 50ML SYRG IV PRN (21:15)
[2021-08-24] MEDS ORDERED: MORPHINE SULFATE 4 MG/ML SYR/VIAL IV PRN ×2 (21:15→22:30)
[2021-08-24] MEDS ORDERED: HYDROcodone-ACET 5/325MG TAB PO PRN ×2 (21:15→22:30)
[2021-08-24] MEDS ORDERED: ONDANSETRON HCL 4 MG/2 ML VIAL IV PRN ×2 (21:15→22:30)
[2021-08-24] MEDS ORDERED: CLOPIDOGREL 300 MG TAB ONE (21:38)
[2021-08-24] MEDS ORDERED: HEPARIN SODIUM (PORCINE) 5000 UNITS/ML 1ML VIAL SC SCH (22:00)
[2021-08-24] MEDS ORDERED: CARVEDILOL 12.5 MG TAB PO SCH (22:00)
[2021-08-24] MEDS ORDERED: NITROGLYCERIN 0.4 MG SL TAB SL PRN ×2 (22:15→22:30)
[2021-08-24] MEDS ORDERED: SOD CHL 0.45% WITH 20MEQ KCL 1,000 ML IV ONE (22:15)
[2021-08-24] MEDS ORDERED: MORPHINE SULFATE INJECTION 2 MG/ML SYRG IV PRN (22:15)
[2021-08-24] MEDS ORDERED: ACETAMINOPHEN 500 MG TAB PO PRN (22:30)
[2021-08-24] MEDS ORDERED: MILK OF MAGNESIA 30ML SUSP PO ONE (22:30)
[2021-08-24] MEDS ORDERED: ZOLPIDEM TARTRATE 5 MG TAB PO PRN (22:30)
[2021-08-24 22:40] LABS: Basophils # (auto) 0 10 ^3/uL (0-0.2); Basophils % (auto) 0.3 % (0.0-2.0); Eosinophils # (auto) 0 10 ^3/uL (0-0.8); Eosinophils % (auto) 0.4 % (0.0-7.0); Hematocrit 42.7 % (36.0-46.0); Hemoglobin 13.7 g/dL (12.2-16.2); Lymphocytes # (auto) 0.5 10 ^3/uL (0.4-5.4); Lymphocytes % (auto) 7.7 % (10.0-50.0); Mean Corpuscular Hgb Conc. 32.1 g/dL (32.0-36.0); Monocytes # (auto) 0.4 10 ^3/uL (0-1.3); Monocytes % (auto) 5.3 % (0.0-12.0); Neutrophils # (auto) 5.9 10 ^3/uL (1.6-8.6); Neutrophils % (auto) 86.3 % (37.0-80.0); Nucleated Red Blood Cells % 0.1 %; Red Blood Cells 4.15 10^6/uL (4.0-5.20); Red Cell Distribution Width 14.7 % (11.8-14.3); White Blood Cell 6.9 10^3/uL (4.4-10.8)
[2021-08-24 22:54] LABS: Albumin 2.5 g/dL (3.4-5.0); Calcium 7.7 mg/dL (8.5-10.1); Potassium 4.2 mmol/L (3.5-5.1)
[2021-08-24 22:57] LABS: BUN/Creatinine Ratio 19.2; Bilirubin, Total 1.5 mg/dL (0.2-1.0); Total Protein 5.6 g/dL (6.4-8.2)
[2021-08-24] MEDS: HEPARIN SODIUM (PORCINE) 5000 UNITS/ML 1ML VIAL IV SCH (23:00)
[2021-08-24 23:12] LABS: INR > 8.0 (0.9-1.15)
[2021-08-24] MEDS ORDERED: HEPARIN SODIUM (PORCINE) 5000 UNITS/ML 1ML VIAL IV ONE (23:15)
[2021-08-24] MEDS ORDERED: HEPARIN DRIP/D5W 100UNITS/ML 250 ML IV SCH (23:15)
[2021-08-25] VITALS (35 sets, daily range): BP systolic 78–156; BP diastolic 36–81
[2021-08-25] MEDS: HEPARIN SODIUM (PORCINE) 5000 UNITS/ML 1ML VIAL IV SCH
[2021-08-25] MEDS: InsuLIN REG 1unit/0.01ml Soln (100units/ml) SC SCH ×5 (01:00→21:22)
[2021-08-25] MEDS: ACCU-CHEK COMFORT CURVE STRIP VI SCH ×5 (01:00→21:21)
[2021-08-25 01:56] LABS: Basophils # (auto) 0 10 ^3/uL (0-0.2); Basophils % (auto) 0.1 % (0.0-2.0); Eosinophils # (auto) 0 10 ^3/uL (0-0.8); Eosinophils % (auto) 0.1 % (0.0-7.0); Hematocrit 42.2 % (36.0-46.0); Hemoglobin 14.5 g/dL (12.2-16.2); Lymphocytes # (auto) 0.4 10 ^3/uL (0.4-5.4); Lymphocytes % (auto) 5.4 % (10.0-50.0); Mean Corpuscular Hemoglobin 33.9 pg (28.0-32.0); Mean Corpuscular Hgb Conc. 34.3 g/dL (32.0-36.0); Mean Corpuscular Volume 98.6 fL (80.0-100.0); Monocytes # (auto) 0.4 10 ^3/uL (0-1.3); Monocytes % (auto) 4.5 % (0.0-12.0); Neutrophils # (auto) 7.3 10 ^3/uL (1.6-8.6); Neutrophils % (auto) 89.9 % (37.0-80.0); Nucleated Red Blood Cells % 0.2 %; Red Blood Cells 4.28 10^6/uL (4.0-5.20); Red Cell Distribution Width 14.1 % (11.8-14.3); White Blood Cell 8.1 10^3/uL (4.4-10.8)
[2021-08-25] MEDS ORDERED: ALPRAZolam 0.5 MG TAB PO PRN (02:00)
[2021-08-25 02:18] LABS: Albumin 2.9 g/dL (3.4-5.0); Calcium 8.1 mg/dL (8.5-10.1); Potassium 4.9 mmol/L (3.5-5.1)
[2021-08-25 02:22] LABS: INR 1.56 (0.9-1.15)
[2021-08-25 02:37] LABS: BUN/Creatinine Ratio 16.3; Bilirubin, Total 1.9 mg/dL (0.2-1.0); Total Protein 6.3 g/dL (6.4-8.2)
[2021-08-25 02:42] LABS: Partial Thromboplastin Time > 139.0 sec (23.6-33.0)
[2021-08-25] MEDS ORDERED: ATROPINE SULFATE 0.4 MG/1 ML VIAL ONE (03:06)
[2021-08-25] MEDS: SODIUM CHLOR 0.9% PF (SALINE LOCK) 10ML VIAL/SYR IV SCH ×4 (06:16→22:00)
[2021-08-25] MEDS ORDERED: InsuLIN REG 1unit/0.01ml Soln (100units/ml) SC SCH (07:00)
[2021-08-25] MEDS: PANTOPRAZOLE 40 MG/10 ML VIAL INJ IV SCH ×2 (07:40→10:04)
[2021-08-25 09:09] LABS: INR 1.11 (0.9-1.15); Partial Thromboplastin Time 28.7 sec (23.6-33.0)
[2021-08-25] MEDS: CARVEDILOL 3.125 MG TAB PO SCH ×2 (10:00→21:32)
[2021-08-25] MEDS ORDERED: ASPirin 81 mg TAB PO SCH (10:00)
[2021-08-25] MEDS ORDERED: FAMOTIDINE (10MG/ML) 2ML VL IV SCH (10:00)
[2021-08-25] MEDS ORDERED: SACUBITRIL-VALSARTAN 24mg/26mg TAB PO SCH (10:00)
[2021-08-25] MEDS: ATORVASTATIN 20 MG TAB PO SCH (10:05)
[2021-08-25] MEDS: ASPirin 81 mg TAB PO SCH (10:05)
[2021-08-25] MEDS: CLOPIDOGREL BISULFATE 75 MG TAB PO SCH (10:05)
[2021-08-25] MEDS ORDERED: HEPARIN SODIUM (PORCINE) 5000 UNITS/ML 1ML VIAL IV ONE (10:15)
[2021-08-25] MEDS ORDERED: HEPARIN DRIP/D5W 100UNITS/ML 250 ML IV SCH (10:15)
[2021-08-25] MEDS ORDERED: NITROGLYCERIN 0.2MG/HR TOPICAL PATCH TD ONE (12:15)
[2021-08-25] MEDS ORDERED: LIDOCAINE 2% (LOCAL ANESTH.) PF 5ml SDV ONE (14:59)
[2021-08-25] MEDS: Glucerna Carbsteady SHAKE Vanilla 8oz PO SCH (17:44)
[2021-08-25 20:21] LABS: Urine Blood 2+ /uL (Negative); Urine Mucus FEW (None Seen); Urine WBC 10 /hpf (0 - 5)
[2021-08-25 20:24] LABS: Urine Bacteria FEW /hpf (None Seen); Urine Specific Gravity > 1.050 (1.001-1.035)
[2021-08-25 20:36] LABS: Protein, Urine 44.3 mg/dL (0.0-11.9)
[2021-08-25] MEDS: ALPRAZolam 0.5 MG TAB PO PRN (21:33)
[2021-08-25] MEDS: SACUBITRIL-VALSARTAN 24mg/26mg TAB PO SCH (21:33)
[2021-08-26] VITALS (29 sets, daily range): BP systolic 81–114; BP diastolic 45–68
[2021-08-26 05:40] LABS: Basophils # (auto) 0 10 ^3/uL (0-0.2); Eosinophils # (auto) 0.1 10 ^3/uL (0-0.8); Monocytes # (auto) 0.5 10 ^3/uL (0-1.3)
[2021-08-26 05:42] LABS: Basophils % (auto) 0.3 % (0.0-2.0); Eosinophils % (auto) 2.4 % (0.0-7.0); Hematocrit 37.1 % (36.0-46.0); Lymphocytes # (auto) 0.9 10 ^3/uL (0.4-5.4); Lymphocytes % (auto) 16.9 % (10.0-50.0); Mean Corpuscular Hemoglobin 34.4 pg (28.0-32.0); Mean Corpuscular Hgb Conc. 35.1 g/dL (32.0-36.0); Mean Corpuscular Volume 97.9 fL (80.0-100.0); Monocytes % (auto) 9.7 % (0.0-12.0); Neutrophils # (auto) 3.6 10 ^3/uL (1.6-8.6); Neutrophils % (auto) 70.7 % (37.0-80.0); Nucleated Red Blood Cells % 0.2 %; Red Blood Cells 3.79 10^6/uL (4.0-5.20); Red Cell Distribution Width 14.2 % (11.8-14.3)
[2021-08-26 05:53] LABS: BUN/Creatinine Ratio 16.8; Calcium 8.2 mg/dL (8.5-10.1); Potassium 4.2 mmol/L (3.5-5.1)
[2021-08-26] MEDS: SODIUM CHLOR 0.9% PF (SALINE LOCK) 10ML VIAL/SYR IV SCH ×3 (06:17→21:55)
[2021-08-26] MEDS: ACCU-CHEK COMFORT CURVE STRIP VI SCH ×4 (06:26→21:56)
[2021-08-26] MEDS: InsuLIN REG 1unit/0.01ml Soln (100units/ml) SC SCH ×4 (06:26→22:03)
[2021-08-26] MEDS: Glucerna Carbsteady SHAKE Vanilla 8oz PO SCH ×3 (08:09→18:13)
[2021-08-26] MEDS: CLOPIDOGREL BISULFATE 75 MG TAB PO SCH (09:12)
[2021-08-26] MEDS: ASPirin 81 mg TAB PO SCH (09:12)
[2021-08-26] MEDS: PANTOPRAZOLE 40 MG/10 ML VIAL INJ IV SCH (09:12)
[2021-08-26] MEDS: ATORVASTATIN 20 MG TAB PO SCH (09:12)
[2021-08-26] MEDS: SACUBITRIL-VALSARTAN 24mg/26mg TAB PO SCH ×2 (09:13→21:56)
[2021-08-26] MEDS: CARVEDILOL 3.125 MG TAB PO SCH ×2 (09:13→21:55)
[2021-08-26] MEDS: ALPRAZolam 0.5 MG TAB PO PRN (11:34)
[2021-08-27] VITALS (20 sets, daily range): BP systolic 91–112; BP diastolic 56–93
[2021-08-27] MEDS: ALPRAZolam 0.5 MG TAB PO PRN ×2 (00:12→22:02)
[2021-08-27 04:24] LABS: BUN/Creatinine Ratio 19.3; Calcium 8.2 mg/dL (8.5-10.1); Potassium 4.4 mmol/L (3.5-5.1)
[2021-08-27] MEDS: SODIUM CHLOR 0.9% PF (SALINE LOCK) 10ML VIAL/SYR IV SCH ×3 (06:00→21:59)
[2021-08-27] MEDS: InsuLIN REG 1unit/0.01ml Soln (100units/ml) SC SCH ×4 (06:45→21:50)
[2021-08-27] MEDS: ACCU-CHEK COMFORT CURVE STRIP VI SCH ×4 (06:45→21:44)
[2021-08-27] MEDS: PANTOPRAZOLE 40 MG/10 ML VIAL INJ IV SCH (09:12)
[2021-08-27] MEDS: CLOPIDOGREL BISULFATE 75 MG TAB PO SCH (09:13)
[2021-08-27] MEDS: ATORVASTATIN 20 MG TAB PO SCH (09:13)
[2021-08-27] MEDS: ASPirin 81 mg TAB PO SCH (09:13)
[2021-08-27] MEDS: CARVEDILOL 3.125 MG TAB PO SCH ×2 (09:21→22:00)
[2021-08-27] MEDS: Glucerna Carbsteady SHAKE Vanilla 8oz PO SCH ×3 (09:21→18:00)
[2021-08-27] MEDS: SACUBITRIL-VALSARTAN 24mg/26mg TAB PO SCH ×2 (09:21→22:01)
[2021-08-27] MEDS ORDERED: ARTIFICIAL TEARS 15ml EACHEYE PRN (11:45)
[2021-08-28 05:00] VITALS: BP 102/69
[2021-08-28] MEDS: ACCU-CHEK COMFORT CURVE STRIP VI SCH ×4 (06:42→21:22)
[2021-08-28] MEDS: SODIUM CHLOR 0.9% PF (SALINE LOCK) 10ML VIAL/SYR IV SCH ×3 (06:42→21:21)
[2021-08-28] MEDS: InsuLIN REG 1unit/0.01ml Soln (100units/ml) SC SCH ×4 (06:45→21:22)
[2021-08-28 06:56] LABS: Potassium 4.1 mmol/L (3.5-5.1)
[2021-08-28 07:02] LABS: Calcium 8.3 mg/dL (8.5-10.1)
[2021-08-28] MEDS: Glucerna Carbsteady SHAKE Vanilla 8oz PO SCH ×3 (08:00→18:00)
[2021-08-28 09:00] VITALS: BP 98/61
[2021-08-28] MEDS: CARVEDILOL 3.125 MG TAB PO SCH ×2 (10:00→21:21)
[2021-08-28] MEDS: SACUBITRIL-VALSARTAN 24mg/26mg TAB PO SCH ×2 (10:00→21:22)
[2021-08-28] MEDS: ATORVASTATIN 20 MG TAB PO SCH (10:30)
[2021-08-28] MEDS: CLOPIDOGREL BISULFATE 75 MG TAB PO SCH (10:33)
[2021-08-28] MEDS: PANTOPRAZOLE 40 MG/10 ML VIAL INJ IV SCH (10:34)
[2021-08-28] MEDS: ASPirin 81 mg TAB PO SCH (10:34)
[2021-08-28] MEDS ORDERED: SODIUM CHLORIDE 0.9% 500 ML IV ONE (12:30)
[2021-08-28 13:00] VITALS: BP 89/51
[2021-08-28 17:00] VITALS: BP 96/45
[2021-08-29 02:13] LABS: Urine Bacteria NONE SEEN /hpf (None Seen); Urine Blood Negative /uL (Negative); Urine Budding Yeast MANY /hpf (None Seen); Urine Mucus FEW (None Seen); Urine Specific Gravity 1.023 (1.001-1.035); Urine WBC 24 /hpf (0 - 5)
[2021-08-29] MEDS: SODIUM CHLOR 0.9% PF (SALINE LOCK) 10ML VIAL/SYR IV SCH ×3 (06:00→22:04)
[2021-08-29 06:10] VITALS: BP 101/51
[2021-08-29] MEDS: ACCU-CHEK COMFORT CURVE STRIP VI SCH ×4 (06:50→21:49)
[2021-08-29] MEDS: InsuLIN REG 1unit/0.01ml Soln (100units/ml) SC SCH ×4 (06:53→22:18)
[2021-08-29] MEDS: Glucerna Carbsteady SHAKE Vanilla 8oz PO SCH ×3 (08:00→18:00)
[2021-08-29 08:03] LABS: BUN/Creatinine Ratio 19.7; Potassium 4.9 mmol/L (3.5-5.1)
[2021-08-29 09:00] VITALS: BP 108/68
[2021-08-29] MEDS: SACUBITRIL-VALSARTAN 24mg/26mg TAB PO SCH ×2 (10:00→22:04)
[2021-08-29] MEDS: CARVEDILOL 3.125 MG TAB PO SCH ×2 (10:00→22:05)
[2021-08-29] MEDS: ATORVASTATIN 20 MG TAB PO SCH (10:36)
[2021-08-29] MEDS: ASPirin 81 mg TAB PO SCH (10:36)
[2021-08-29] MEDS: PANTOPRAZOLE 40 MG/10 ML VIAL INJ IV SCH (10:36)
[2021-08-29] MEDS: CLOPIDOGREL BISULFATE 75 MG TAB PO SCH (10:37)
[2021-08-29 13:07] VITALS: BP 106/63
[2021-08-29 22:11] VITALS: BP 104/64
[2021-08-30] VITALS (7 sets, daily range): BP systolic 82–112; BP diastolic 51–70
[2021-08-30] MEDS: SODIUM CHLOR 0.9% PF (SALINE LOCK) 10ML VIAL/SYR IV SCH ×3 (05:42→21:03)
[2021-08-30] MEDS ORDERED: ALBUMIN 5% 250 ML IV ONE (06:00)
[2021-08-30] MEDS: InsuLIN REG 1unit/0.01ml Soln (100units/ml) SC SCH ×4 (06:39→21:15)
[2021-08-30] MEDS: ACCU-CHEK COMFORT CURVE STRIP VI SCH ×4 (06:40→21:03)
[2021-08-30 07:32] LABS: Potassium 4.7 mmol/L (3.5-5.1)
[2021-08-30 07:51] LABS: BUN/Creatinine Ratio 22.7; Calcium 9.2 mg/dL (8.5-10.1)
[2021-08-30] MEDS: Glucerna Carbsteady SHAKE Vanilla 8oz PO SCH ×3 (08:00→18:00)
[2021-08-30] MEDS: SACUBITRIL-VALSARTAN 24mg/26mg TAB PO SCH ×2 (09:38→18:38)
[2021-08-30] MEDS: CARVEDILOL 3.125 MG TAB PO SCH ×2 (09:38→18:37)
[2021-08-30] MEDS: PANTOPRAZOLE 40 MG/10 ML VIAL INJ IV SCH (09:41)
[2021-08-30] MEDS: ASPirin 81 mg TAB PO SCH (09:41)
[2021-08-30] MEDS: ATORVASTATIN 20 MG TAB PO SCH (09:42)
[2021-08-30] MEDS: CLOPIDOGREL BISULFATE 75 MG TAB PO SCH (09:42)
[2021-08-30] MEDS: ALPRAZolam 0.5 MG TAB PO PRN ×2 (15:30→22:49)
[2021-08-31 04:55] VITALS: BP 102/60
[2021-08-31] MEDS: InsuLIN REG 1unit/0.01ml Soln (100units/ml) SC SCH ×3 (06:13→17:00)
[2021-08-31] MEDS: SODIUM CHLOR 0.9% PF (SALINE LOCK) 10ML VIAL/SYR IV SCH ×2 (06:13→14:00)
[2021-08-31] MEDS: ACCU-CHEK COMFORT CURVE STRIP VI SCH ×3 (06:13→17:00)
[2021-08-31 07:58] LABS: Potassium 4.7 mmol/L (3.5-5.1)
[2021-08-31 08:00] LABS: BUN/Creatinine Ratio 23.2
[2021-08-31] MEDS: Glucerna Carbsteady SHAKE Vanilla 8oz PO SCH ×3 (08:00→18:00)
[2021-08-31 09:00] VITALS: BP 123/70
[2021-08-31] MEDS: ASPirin 81 mg TAB PO SCH (10:00)
[2021-08-31] MEDS: ATORVASTATIN 20 MG TAB PO SCH (10:00)
[2021-08-31] MEDS: CLOPIDOGREL BISULFATE 75 MG TAB PO SCH (10:00)
[2021-08-31] MEDS: PANTOPRAZOLE 40 MG/10 ML VIAL INJ IV SCH (10:00)
[2021-08-31] MEDS: CARVEDILOL 3.125 MG TAB PO SCH (10:00)
[2021-08-31 13:00] VITALS: BP 103/66
[2021-08-31] MEDS: SACUBITRIL-VALSARTAN 24mg/26mg TAB PO SCH (13:55)
[2021-08-31 17:00] VITALS: BP 119/53
== END 2021-08-31 20:07 | disposition home or self-care (01) | DRG 270 ==
LOC: EDBD 16:47 → ER 16:47 → TELE 22:02 → ICU WEST 08-25 00:40 → TELE-WESTW 08-27 19:35
PROVIDERS: ADMIT Internal Medicine; ATTEND Internal Medicine Cardiovascular Disease
PROC: 027137Z Dilation of Coronary Artery, Two Arteries with Four or More Drug-eluting Intraluminal Devices, Percutaneous Approach (ICD-10-PCS; principal; 2021-08-24)
PROC: 5A02210 Assistance with Cardiac Output using Balloon Pump, Continuous (ICD-10-PCS; 2021-08-24)
PROC: 4A023N7 Measurement of Cardiac Sampling and Pressure, Left Heart, Percutaneous Approach (ICD-10-PCS; 2021-08-24)
PROC: B211YZZ Fluoroscopy of Multiple Coronary Arteries using Other Contrast (ICD-10-PCS; 2021-08-24)
PROC: B215YZZ Fluoroscopy of Left Heart using Other Contrast (ICD-10-PCS; 2021-08-24)
PROC: B240ZZ3 Ultrasonography of Single Coronary Artery, Intravascular (ICD-10-PCS; 2021-08-24)
DX: I21.19 ST elevation (STEMI) myocardial infarction involving other coronary artery of inferior wall (principal); R57.0 Cardiogenic shock; I50.23 Acute on chronic systolic (congestive) heart failure; E87.1 Hypo-osmolality and hyponatremia; I13.0 Hypertensive heart and chronic kidney disease with heart failure and stage 1 through stage 4 chronic kidney disease, or unspecified chronic kidney disease; N17.9 Acute kidney failure, unspecified; E11.65 Type 2 diabetes mellitus with hyperglycemia; I25.10 Atherosclerotic heart disease of native coronary artery without angina pectoris; Z20.822 Contact with and (suspected) exposure to COVID-19; E11.22 Type 2 diabetes mellitus with diabetic chronic kidney disease; E78.5 Hyperlipidemia, unspecified; I25.5 Ischemic cardiomyopathy; I27.20 Pulmonary hypertension, unspecified; I48.91 Unspecified atrial fibrillation; J44.9 Chronic obstructive pulmonary disease, unspecified; N18.32 Chronic kidney disease, stage 3b; Z82.49 Family history of ischemic heart disease and other diseases of the circulatory system; Z83.3 Family history of diabetes mellitus; Z86.73 Personal history of transient ischemic attack (TIA), and cerebral infarction without residual deficits; I25.2 Old myocardial infarction; Z90.49 Acquired absence of other specified parts of digestive tract
CPT/HCPCS: 33967; 36415; 71045; 76775; 80048; 80053; 81001; 82570; 82962; 83036; 83735; 83880; 84156; 84300; 84484; 85025; 85610; 85730; 87081; 87426; 92928; 92929; 92978; 93005; 93306; 93458; 96374; 96375; 96376; 97110; 97116; 97163; 97530; 99152; 99153; 99291; C1874; C9113; G0378; J0461; J1815; J2001; J2250; J2405; Q9967